=== PATIENT | male | born 1950 | race Caucasian/White ===

== ENCOUNTER 2025-06-27 05:40 | Inpatient (IN) | payer MEDICARE, OTHER, SELFPAY ==
[2025-06-27] VITALS (65 sets, daily range): BP systolic 92–162; BP diastolic 55–116; BMI 33.8; BMI 32.9
--- NOTE | 2025-06-27 02:25 | EDRN ---
error HR 69
[2025-06-27 02:39] LABS: Hematocrit 39.0 % (39.0-52.0); Hemoglobin 13.1 g/dL (13.0-18.0); Mean Corp Hgb Conc. 33.6 g/dL (33.0-37.0); Mean Corpuscular Volume 92.6 fL (80.0-94.0); Nucleated Red Blood Cells % 0 % (-); Platelet Count 161 10^3/uL (130-400); Red Cell Dist. Width 11.9 % (11.5-14.5)
[2025-06-27 03:02] LABS: ALT (SGPT) 18 U/L (0-50); AST (SGOT) 25 U/L (17-59); Albumin 4.2 g/dl (3.5-5.0); Alkaline Phosphatase 101 U/L (38-126); Blood Urea Nitrogen 30 mg/dl (9-20); Calcium 9.1 mg/dl (8.4-10.2); Carbon Dioxide 27 mmol/L (22-30); Chloride 104 mmol/L (98-107); Estimated Creatinine Clearance 59 ml/min; Glucose 120 mg/dl (70-99); Lipase 170 U/L (23-300); Potassium 4.4 mmol/L (3.5-5.1); Sodium 137 mmol/L (135-145); Total Protein 6.7 g/dl (6.3-8.2); eGFR > 60.00
--- NOTE | 2025-06-27 03:12 | ED.GENMED ---
History of Present Illness
General
Chief Complaint: Chest Pain
Source: patient
Exam Limitations: none
Time Seen by Provider: 06/27/25 02:08
Nursing documentation reviewed up to this point in time: agreed with
History of Present Illness
History of Present Illness:
The patient is a 75-year-old male presenting with a chief complaint of chest tightness, which began approximately four days ago. The tightness is described as more discomfort than pain and is located on the left upper chest, radiating to the back
and left lateral neck. The patient states, 'It got actually a little better when I was walking in here,' indicating some relief with activity. The tightness worsens when lying down and is most pronounced at night, interfering with sleep. There is no
history of similar symptoms.
The patient denies nausea or shortness of breath associated with the current episode. He has a history of using oral pantoprazole for a hiatal hernia/GERD, taking it once daily but has increased to twice daily over the past few days without
significant relief. The patient reports no previous history of coronary artery disease but mentions a known bundle branch abnormality, prohibiting the use of beta-blockers as advised by a die setter. He follows with a die setter at [place].
He admits that chest discomfort is only noted at nighttime with lying down. Not noticeable during the day when he is up and about.
No other associated symptoms.
No significant alcohol use, denies NSAID use.
Home medications include:
- Rosuvastatin
- Montelukast
- Amlodipine
- Semaglutide (Ozempic)
- Ezetimibe
- Valsartan
- Pantoprazole (Protonix)
- Hydrochlorothiazide
- Silodosin
Past History
Past History
ED Past Medical History: Asthma, GERD (Hiatal hernia), HTN, Hypercholesterolemia, NIDDM and Other (BPH)
ED Past Surgical History: Orthopedic
Social History
Tobacco: Non-smoker
Alcohol: Occasional
Drug: None
Personal:
Living: with family
Employment: Retired
Family History
Family History: CAD (Both father and brother with history of CAD/MIs in their 40s.)
Phy Exam
Physical Exam
Physical Exam:
GENERAL: 75-year-old gentleman appears his stated age, awake and alert, pleasant, appears in no acute distress.
EYE: anicteric
NECK: Supple, nontender, no meningismus, no significant adenopathy.
ENT: oral mucosa is moist. No rhinorrhea.
CARDIAC: Regular rate and rhythm. no murmur. No rub. No palpable chest wall tenderness.
LUNGS: Clear breath sounds bilaterally, no acute respiratory distress, no wheezes/rales/rhonchi
ABDOMEN: Rotund, soft, nondistended, without focal tenderness, no r/g, normoactive BS.
NEUROLOGICAL: Alert and oriented x3, no focal neuro deficits.
SKIN: Warm and dry, normal color, skin intact. No rash.
MUSCULOSKELETAL: No C/C/E. peripheral pulses are full and equal b/l. No palpable tenderness.
PSYCH: Normal and appropriate interaction.
Scores
Heart Score for Chest Pain Patients
STEMI patient?: No
History: Slightly or Non-Suspicious
ECG: Nonspecific Repolarization
Age: >/= 65 years
Risk Factors: >/= 3 Risk Factors or History of CAD
Troponin: >/= 3 x Normal Limit
Heart Score for Chest Pain Patients: 7
Heart Score Risk: 72.7 % MACE over next 6 weeks
Course
Orders/Labs/Results
Orders:
Orders
06/27/25 01:45
Electrocardiogram (*1) Urgent
Reason for Study: Chest Pain
EKG- Treatment ONCE
06/27/25 02:23
Complete Blood Count/With Diff Urgent
Comprehensive Metabolic Panel Urgent
Lipase Urgent
Troponin I Urgent
06/27/25 03:31
Aspirin Chewable [Low Strength Aspirin] 324 mg PO NOW STA
Heparin 4,000 units IV NOW STA
Nitroglycerin Sublingual [Nitrostat (Sublingual)] 0.4 mg SL NOW STA
Nursing to Place Non Medication Order As Directed
Physician Order: PTT 6 hours after initial start of Heparin infusion
Above order entered?: Yes
06/27/25 03:33
CR Chest - 2 Views Urgent
Comment:
Reason For Exam: acute CP
06/27/25 03:37
PTT Urgent
Comment: Obtain baseline before beginning heparin infusion if not already collected
06/27/25 03:39
Heparin [id number] Units/250 ml 25,000 units in 250 ml .ROUTE .STK-MED
06/27/25 03:45
Heparin [id number] Units/250 ml 25,000 units in 250 ml IV PER PROTOCOL
Weight to be used for heparin protocol in kilograms (kg):: 92
Protocol:: Cardiac Tx/Acute Coronary
PTT Goal Range to be used:: PTT 73 to 111 seconds
Order type:: Initial
INITIAL Infusion Dose (UNITS/KG/hr) & then follow protocol:: 12 units/kg/hr
Infusion Dose in UNITS/hr & then follow protocol (UNITS/hr):: 1,000
INFUSION RATE in mL/hr & then follow protocol (mL/hr):: 10
PTT less than or equal to 64 seconds:: Increase rate by 200 units/hr (+ 2 mL/hr)
PTT 64.1 to 72.9 seconds:: Increase rate by 100 units/hr (+ 1 mL/hr)
PTT 73 to 111 seconds:: Target Range. No change in rate.
PTT 111.1 to 130.9 seconds:: Decrease rate by 100 units/hr (- 1 mL/hr)
PTT 131 to 199.9 seconds:: HOLD for 1 hr. Then decrease rate by 200 units/hr (- 2 mL/hr)
PTT greater than or equal to 200 seconds:: HOLD for 2 hrs & Notify Provider. Then decrease by 200 units/hr (-
2 mL/hr)
Lab follow-up:: Each change, PTT q6h until 2 consecutive are therapeutic. Then PTT
daily.
06/27/25 03:54
Nitroglycerin Sublingual [Nitrostat (Sublingual)] 0.4 mg SL NOW STA
06/27/25 03:55
Nitroglycerin Sublingual [Nitrostat (Sublingual)] 0.4 mg SL NOW STA
06/27/25 04:02
EKG [Electrocardiogram (*1)] Urgent
Reason for Study: Chest Pain
EKG- Treatment ONCE
06/27/25 04:08
Nitroglycerin Sublingual [Nitrostat (Sublingual)] 0.4 mg SL NOW STA
06/27/25 05:12
Nitroglycerin Ointment [Nitro-Bid] 1 inch .ROUTE .STK-MED ONE
06/27/25 05:13
Nitroglycerin Ointment [Nitro-Bid] 1 inch TOPICAL NOW STA
06/27/25 05:15
Nitroglycerin Ointment [Nitro-Bid] 1 inch TOPICAL NOW STA
06/27/25 05:24
Admit/Transfer Patient As Directed
Co-Sign Provider:
Level of Care: Inpatient admission
Assign to:: IVU
Physician / Group: Pradip
Diagnosis: Chest Pain / ACS
Reason for Hospitalization: Chest Pain / ACS
Expected length of stay greater than two midnights?: Yes
ELOS- Estimated Length of Stay in days: 2
I certify the patient meets the requirements for IP care: Yes
PRN Pain Medication Management As Directed
May give lesser potent ordered pain med per pt: Yes
preference::
Protocol:: Medication orders for pain may be administered in a
manner that supports deferring to patient preference
when the pt is:
- Requesting an ordered lesser potent pain medication.
Least to most potent pain medications are defined
as: acetaminophen < NSAID < tramadol < opioids
(morphine, oxycodone, hydromorphone).
- Requesting a lesser dose of the same medication IF
ORDERED.
- Requesting a less intrusive route of administration
if both routes are prescribed by the provider (PO <
IV).
06/27/25 05:27
Code Status As Directed
Resuscitation Status: Full Code
06/27/25 09:45
PTT Urgent
Abnormal Lab Results
06/27/25 06/27/25
02:23 03:37
RBC 4.21 L 10^6/uL
(4.70-6.10)
MCH 31.1 H pg
(27.0-31.0)
APTT 35.5 H Sec
(23.4-35.0)
BUN 30 H mg/dl
(9-20)
Glucose 120 H mg/dl
(70-99)
Troponin I 0.440 H* ng/ml
06/27/25 02:23
06/27/25 02:23
Vital Signs
Initial and Last Documented VS:
Initial Vital Signs
Temp Pulse Resp BP Pulse Ox
97.7 F 70 18 159/71 99
06/27/25 01:53 06/27/25 01:53 06/27/25 01:53 06/27/25 01:53 06/27/25 01:53
Last Documented Vital Signs
Temp Pulse Resp BP Pulse Ox
97.7 F 72 16 115/67 97
06/27/25 01:53 06/27/25 06:30 06/27/25 05:00 06/27/25 06:30 06/27/25 06:30
MDM/Problems Addressed
Differential Diagnosis Includes:
The Differential Diagnosis includes, in no particular order and is not limited to:
- Gastroesophageal reflux disease
- Angina pectoris
- Myocardial infarction
- Musculoskeletal pain
- Pulmonary embolism
- Aortic dissection
- Cardiac arrhythmias
- Panic attacks
- Pericarditis
- Esophageal spasm
MDM/Problems Addressed:
Acute chest pain x 4 days, worse with lying supine.
This could certainly be acid reflux in nature however at this point no improvement with additional PPI.
He also has multiple risk factors for CAD.
EKG shows normal sinus rhythm, terminal T wave inversion inferiorly as well as mild ST depression high laterally. No old EKGs to compare.
Will check labs including troponin.
Will continue monitoring coordinator.
Consider imaging depending on results.
Chronic conditions affecting care:
Acute:
- Chest tightness
Chronic:
- Hiatal hernia
- Shoulder tendonitis
Chronic conditions affecting care: DM, HTN, Asthma and Other (Hyperlipidemia)
*Radiology
Radiology exam reviewed: preliminary read by ED provider (Chest x-ray is unremarkable. Clear lung toussaint. Normal heart size. Normal mediastinum.)
*Pulse Oximetry
SaO2: 100
Oxygen Mode of Delivery: Room air
Patient hypoxic: no
*EKG
Interpreted by ED Provider?: Yes
Comparison EKG: no comparison EKG present
Rate: normal
Rhythm: sinus
[place]: normal axis
Interval: normal interval
QRS Pattern: normal QRS
Ischemia: T-wave inversion (Terminal T wave inversion inferiorly. Mild ST depression high laterally. No old EKG to compare.)
*[employer] Store Marketing Representative Interpretation
Rate: normal
Interpretation: normal
Rhythm: sinus
*Critical Care Note
Total Time (30-74mins, 75-104mins- exclusive of procedures): 30
comment:
Critical care statement: A total of 30 minutes of critical care time was provided for this patient. This includes management of unstable vital signs, evaluation of the patient at bedside, reviewing the patient's pertinent medical records, discussion
with consultants, review of old EKGs and review of pertinent medical records. This time with separate from time utilized to perform the aforementioned documented procedures
Update Note
Update Note:
04:30
Labs remarkable for elevated troponin 0.440. Consistent with non-STEMI.
Patient admits to mild left upper chest ache.
Now improved, near resolved after sublingual nitroglycerin, 324 mg chewable aspirin.
Will initiate IV heparin bolus and drip.
Will give additional nitroglycerin and plan for Nitropaste pain-free, nitro drip if chest pain continues.
Repeat EKG shows ST downsloping in 1 and aVL. Terminal T wave inversion inferiorly is now resolved.
Will plan to admit to hospital service with consult to cardiology.
ED Attending Note
-
Portions of this chart may have been created with voice recognition software.� Occasional wrong word or��sound alike� substitutions may have occurred due to the inherent limitations of voice recognition software.
Discharge Plan
Departure
Patient Disposition: Admit
Date of Disposition: 06/27/25
Time of Disposition: 04:40
Admit to: IVU
Admit to doctor: Pradip
Presentation/result/management discussed w/ accepting MD/DO: Hospitalist
Condition: Serious
Discharge Problem:
Acute non-ST elevation myocardial infarction (NSTEMI)
Interventions
Interventions:
*Risk Screen - Suicide Last Done: 06/27/25 01:53
*General Assessment Last Done: 06/27/25 02:09
*Neglect/Abuse Screening Last Done: 06/27/25 01:53
*ED- Fall Risk Assessment Last Done: 06/27/25 02:09
*ED COVID-19 Vaccine History Last Done: 06/27/25 02:09
*ED Influenza Vaccine History Last Done: 06/27/25 02:09
ED- Cardiac Assessment Last Done: 06/27/25 02:09
[2025-06-27 03:15] LABS: Troponin I 0.440 ng/ml
[2025-06-27] MEDS: NITROSTAT (SUBLINGUAL) 0.4 MG SL ×4 (03:40→19:42)
[2025-06-27] MEDS: HEPARIN 4000 UNITS IV (03:41)
[2025-06-27] MEDS: LOW STRENGTH ASPIRIN 324 MG PO (03:41)
[2025-06-27] MEDS: HEPARIN 25000 UNITS/250 ML IV (03:44)
[2025-06-27 03:55] LABS: APTT 35.5 Sec (23.4-35.0)
[2025-06-27] MEDS: NITRO-BID 1 INCH TOPICAL (05:13)
--- NOTE | 2025-06-27 05:29 | HPS.HSE ---
Family Physician
-
Family Physician: Frantz Hernandez MD
Chief Complaint
-
Chest Pain
History of Present Illness
Patient is a 75y M with PMH significant for ASCVD, hypertension and DM-II who presents to ED complaining of chest pain. Patient states that his symptoms started about 4-5 days ago and have increased in frequency and severity in that time. He
reports heaviness or tightness primarily in the neck, jaw and L shoulder areas. His symptoms tend to be worse with lying supine and improve with standing / activity. He denies any associated SOB, N/V or diaphoresis. Patient denies any prior h/o
similar symptoms. He initially felt that his symptoms may be due to GERD. He increased his PPI to BID with no improvement.
Patient has no personal history of MS, but does have known carotid disease s/p bilateral CEA. he also has family history with CAD in both parents.
He is followed by Dr. Ruvalcaba and states that he has a 'leaky valve' and has been told that he cannot take beta-blockers.
Medical History
Past Medical History
Past Medical History: Reports Other
Additional Past Medical History:
ASCVD / Carotid Stenosis
Hypertension
DM-II
BPH
GERD
Asthma / Allergies
Past Surgical History: Reports Other
Additional Past Surgical History:
Bilateral Carotid Endarterectomies
Bilateral Rotator Cuff Surgeries
Bilateral Knee Arthroscopies
Left Ankle Surgery
Right Foot Surgery
Social History
Tobacco: Non-smoker
Alcohol: Occasional
Drug: None
Family History
Family History: Other (CAD in both parents.)
Allergies / Home Medications
Allergies reflects when Allergies were last updated in [employer]
Home Medications with original date entered in [employer]
Allergy/Medication List:
Allergies
Allergy/AdvReac Type Severity Reaction Status Date / Time
niacin Allergy Swelling Verified 06/27/25 02:13
strawberry Allergy Anaphylaxis Verified 06/27/25 02:13
Sulfa (Sulfonamide Allergy Unknown Verified 06/27/25 02:13
Antibiotics)
Home Medications
amlodipine 2.5 mg tablet 2.5 mg PO DAILY 06/27/25
aspirin 81 mg tablet 81 mg PO DAILY 06/27/25
azelastine 137 mcg (0.1 %) nasal spray 2 spray intranasal BID 06/27/25
desloratadine 5 mg tablet 5 mg PO DAILY 06/27/25
desloratadine 5 mg tablet (Clarinex) 5 mg PO DAILY 06/27/25
ezetimibe 10 mg tablet 10 mg PO DAILY 06/27/25
hydrochlorothiazide 12.5 mg tablet 12.5 mg PO DAILY 06/27/25
irbesartan 150 mg tablet 150 mg PO DAILY 06/27/25
montelukast 10 mg tablet 10 mg PO DAILY 06/27/25
pantoprazole 40 mg tablet,delayed release 40 mg PO DAILY 06/27/25
rosuvastatin 10 mg tablet 10 mg PO DAILY 06/27/25
semaglutide 2 mg/dose (8 mg/3 mL) subcutaneous pen injector (Ozempic) 2 mg SC QWEEK 06/27/25
silodosin 8 mg capsule 8 mg PO DAILY 06/27/25
Review of Systems
-
History Source: Patient
A 12 point ROS was completed and negative except as noted: Yes
Constitutional: Denies Fever or Chills
EENT: Reports Other (Jaw pain.); Denies Sore Throat
Respiratory: Denies Cough or Trouble Breathing
Cardiac: Reports Chest Pain; Denies Diaphoresis, Palpitations or Syncope
Abdomen/GI: Denies Abdominal Pain, Nausea, Vomiting or Diarrhea
: Denies Dysuria, Frequency or Flank Pain
Musculoskeletal: Reports Joint Pain (Neck / L shoulder)
Neurological: Denies Dizzy or Headache
Psych: Denies Depression or Anxiety
Physical Exam
Vital Signs
Vital Signs
Temp Pulse Resp BP Pulse Ox
97.7 F 78 16 133/79 99
06/27/25 01:53 06/27/25 05:15 06/27/25 05:00 06/27/25 05:15 06/27/25 05:15
Physical Exam
General: Other (75y M in no acute distress.)
HEENT: Moist mucous membranes and PERRLA
Respiratory: Clear; No Wheezes, Rales or Rhonchi
Cardiac: S1/S2 and Regular Rhythm; No Murmur
GI: Soft, Non Tender, Non Distended and Normal Bowel Sounds
Musculoskeletal: No Clubbing, No Cyanosis and No Edema
Neuro: AO x 3
Laboratory Results
-
06/27/25 02:23
06/27/25 02:23
Laboratory Results
APTT 35.5 Sec (23.4-35.0) H 06/27/25 03:37
Total Bilirubin 0.6 mg/dl (0.2-1.3) 06/27/25 02:23
AST 25 U/L (17-59) 06/27/25 02:23
ALT 18 U/L (0-50) 06/27/25 02:23
Alkaline Phosphatase 101 U/L (38-126) 06/27/25 02:23
Troponin I 0.440 ng/ml H* 06/27/25 02:23
Lipase 170 U/L (23-300) 06/27/25 02:23
Impression/Plan
-
A/P: Patient is a 75y M with PMH significant for ASCVD (carotids), HTN and DM-II who presents to ED complaining of chest pain.
NSTEMI / ACS
ASCVD
- Admit to IVU for further evaluation and treatment.
- EKG shows non-specific ST changes laterally which appear unchanged from prior tracing. Biphasic T waves in III and aVF which appear new.
- Initial troponin is 0.44. Follow to peak.
- Patient with some residual pain. NTP just placed in the ED - change to IV NTG if pain persists.
- IV heparin protocol.
- Continue ASA. Increase statin dose.
- Cardiology consulted for additional recommendations and likely ischemic evaluation.
- Follow for any new / worsening symptoms.
Benign Hypertension
- Continue amlodipine and irbesartan with holding parameters.
- Hold HCTZ acutely.
- Adjust med regimen as able. ? addition aof beta-theodore (clarify valvular issue / ? records from Dr. Ruvalcaba).
DM-II
- Stable. On Ozempic as an outpatient.
- Follow glucose and cover with SSI as needed.
- Update A1C.
GERD
- Continue PPI daily.
BPH
- Continue silodosin.
Allergies / Asthma
- Stable. Continue Singulair.
DVT Prophylaxis: On IV heparin
Code Status: Full
[2025-06-27 08:17] LABS: Glucose - Point of Care 119 mg/dl (70-99)
[2025-06-27] MEDS: LOW STRENGTH ASPIRIN 81 MG PO (09:39)
[2025-06-27] MEDS: PROTONIX 40 MG PO (09:39)
[2025-06-27] MEDS: NORVASC PO (09:40)
--- NOTE | 2025-06-27 09:44 | CON.CAR ---
Addendum entered and electronically signed by Amparo Cunningham MD 06/27/25 11:17:
I saw and evaluated the patient, and I provided the substantive portion of the medical decision making.
I reviewed and agree with the note by Connie IRENE and it accurately reflects our care.
I personally performed the medical decision making of the this encounter and my assessment and plan is below:
75-year-old gentleman with past medical history of PAD status post bilateral carotid endarterectomy, type 2 diabetes, hypertension, and hyperlipidemia who presented for evaluation of chest pain. Patient states he has had intermittent chest pain for
the past 4 to 5 days. At first it felt like a burning and reminiscent of his GERD. It was worse when he lie flat. This did not improve with treatment of GERD. Additionally, yesterday became more persistent lasting for 4 to 5 hours without
resolution. At this time it began to migrate up to the left upper chest and into his jaw. Currently he is feeling better. On arrival, initial troponin was 0.4 and now has increased to 1.5. The pain is not pleuritic. He has no history of recent
viral illness. He reports a remote cath that was 'normal'.
On exam he has a regular rate and rhythm with a normal S1-S2 no murmur rubs or rubs were appreciated lungs were clear to auscultation bilaterally abdomen was soft nontender nondistended without hepatosplenomegaly. Labs were per for troponins as
above. BUN 30 creatinine 1.1.
EKG shows normal sinus rhythm with LVH and strain. Primary AV conduction delay. No significant change from arrival.
Assessment:
NSTEMI: Concerning for acute plaque rupture given persistent pain at rest yesterday radiating to the jaw. This is a high risk situation threat to life. However, initial presentation is not typical. Currently on aspirin and heparin. Will
continue. I discussed with him the risks and benefits of cardiac catheterization and he is agreeable. I discussed his case with Dr. Ye.
- Continue statin, update lipid panel
-Add beta-theodore if room.
-Echocardiogram
Hypertension: Chronic stable
PAD: Chronic, recommend high-dose statin. LDL goal of less than 55.
Hyperlipidemia: Chronic statin, will assess need for additional agents.
Diabetes type 2, chronically on Ozempic.
Plan discussed with Dr. Rico. Will follow.
Original Note:
Consultation
Consultation Request
Date/Time Consultation Requested: 06/27/2025 09:20
Date/Time Consultation Performed: 06/27/2025 09:40
Requesting Provider: Dr. Rico
Performing Provider: TETO Landis for Dr. Cunningham
Reason for Consultation: Chest pain, abnormal troponin
Medical History
-
Chief Complaint: Chest pain
History of Present Illness:
Fidencio Sierra is a 75 year old male (known to Dr. Ruvalcaba, his primary floor covering installer) with PAD (s/p B/L CEA), HTN, HLD, & T2DM who presents with chest pain. His chest pain which he describes as a 'discomfort' started about 4 to 5 days ago. It gets
worse with laying flat and improves with sitting up. It does not get worse with exertion. He describes the sensation as burning heaviness. He has been increasing his PPI thinking it was related to GERD. He does not have associated nausea and
diaphoresis. He is currently sitting upright and is chest pain free.
Past Medical History
Past Medical History: GERD, HTN, Hypercholesterolemia, NIDDM and Other (PAD s/p B/L CEA)
Past Surgical History: Orthopedic and Other (B/L CEA)
Social History
Tobacco: Non-Smoker
Alcohol: Occasional
Drug: None
Family History
Family History: Reviewed & Not Pertinent
Allergies / Home Medications
Allergy/AdvReac Type Severity Reaction Status Date / Time
niacin Allergy Swelling Verified 06/27/25 02:13
strawberry Allergy Anaphylaxis Verified 06/27/25 02:13
Sulfa (Sulfonamide Allergy Unknown Verified 06/27/25 02:13
Antibiotics)
�Medication �Instructions �Recorded �Confirmed �Type
amlodipine 2.5 mg tablet 2.5 mg PO DAILY Blood Pressure 06/27/25 06/27/25 History
aspirin 81 mg tablet 81 mg PO HS Heart Disease/Condition 06/27/25 06/27/25 History
azelastine 137 mcg (0.1 %) nasal 2 spray intranasal BID Allergies 06/27/25 06/27/25 History
spray
desloratadine 5 mg tablet 5 mg PO QPM Allergies 06/27/25 06/27/25 History
ezetimibe 10 mg tablet 10 mg PO DAILY 06/27/25 06/27/25 History
hydrochlorothiazide 12.5 mg tablet 25 mg PO DAILY Fluid 06/27/25 06/27/25 History
Retention/Swelling
irbesartan 150 mg tablet 150 mg PO QPM 06/27/25 06/27/25 History
montelukast 10 mg tablet 10 mg PO HS Allergies 06/27/25 06/27/25 History
pantoprazole 40 mg tablet,delayed 40 mg PO DAILY Gastrointestinal 06/27/25 06/27/25 History
release Issue
rosuvastatin 10 mg tablet 10 mg PO QPM High Cholesterol 06/27/25 06/27/25 History
semaglutide 2 mg/dose (8 mg/3 mL) 2 mg SC SA Weight Gain 06/27/25 06/27/25 History
subcutaneous pen injector (Ozempic)
silodosin 8 mg capsule 8 mg PO QPM Urinary Issue 06/27/25 06/27/25 History
Review of Systems
-
History Source: Patient
All other systems: Negative unless noted
Constitutional: No Symptoms
EENT: No Symptoms
Respiratory: No Symptoms
Cardiac: No Symptoms
Abdomen/GI: No Symptoms
: No Symptoms
Musculoskeletal: No Symptoms
Skin: No Symptoms
Neurological: No Symptoms
Endocrine: No Symptoms
Hematologic/Lymphatic: No Symptoms
Physical Exam
Vital Signs
Temp Pulse Resp BP Pulse Ox
97.7 F 75 15 105/68 95
06/27/25 08:13 06/27/25 08:45 06/27/25 08:13 06/27/25 08:13 06/27/25 07:30
Lab Results
06/27/25 02:23
06/27/25 02:23
Troponin I 0.440 ng/ml H* 06/27/25 02:23
Physical Exam
General: Well Developed, Well Nourished, No Apparent Distress and Comfortable
HEENT: Normocephalic, Anicteric and Moist Mucous Membranes
Respiratory: Clear and Non Labored Respirations
Cardiac: S1/S2 and Regular Rhythm; Negative Peripheral Edema
Breast: Deferred by me
GI: Soft, Non Tender, Non Distended and Normal Bowel Sounds
Rectal: Deferred by Provider
Genito-urinary: No Costovertebral Tender
Musculoskeletal: No Clubbing, No Cyanosis and No Edema
Skin: Warm and Dry
Neuro: AO x 3
Hematologic/Lymphatic: No Lymphadenopathy
Psych: Calm
Impression / Plan
-
I/P: 75M with PAD (s/p B/L CEA), HTN, HLD, & T2DM who presents with chest pain
Primary floor covering installer: Dr. Ruvalcaba
NSTEMI
- Trend troponin to peak, currently 1.530, was 0.440
- Check CRP and ESR with chest pain laying flat
- Continue ASA & heparin gtt
- Echocardiogram this morning
HTN
- Stable on currently medical therapy
PAD, s/p B/L CEA
HLD, on rosuvastatin & ezetimibe, fasting lipid panel in am
Type 2 diabetes, with hyperglycemia, on Ozempic, Hgba1c pending
GERD
Data Reviewed
-
EKG: Report Reviewed by me
Medical Tests (Nuc Med, Echo etc): Report Reviewed by me
Labs: Labs Reviewed by me
Old Records: Reviewed
[2025-06-27] MEDS: CRESTOR PO (09:45)
[2025-06-27 10:02] LABS: APTT 67.2 Sec (23.4-35.0)
[2025-06-27 10:29] LABS: Troponin I 1.530 ng/ml
--- NOTE | 2025-06-27 11:58 | CM ---
Chart reviewed. Patient is independent of ADLS, lives with his in a 1 story condo, 3rd floor, elevator access, 0 DME. Patient going for a LHC today. Plan is for the patient to return home. CM to follow
--- NOTE | 2025-06-27 12:42 | W.PN.UPDATE ---
Update Note
Progress Note Update
Seen and examined independent of overnight physician. Patient states chest pain was crushing yesterday. It did improve with nitroglycerin x 3 doses yesterday.
General: No acute distress
HEENT: Moist mucous membranes and PERRLA
Respiratory: Clear; No Wheezes, Rales or Rhonchi
Cardiac: S1/S2 and Regular Rhythm; No Murmur
GI: Soft, Non Tender, Non Distended and Normal Bowel Sounds
Musculoskeletal: No Clubbing, No Cyanosis and No Edema
Neuro: AO x 3
Patient is a 75y M with PMH significant for ASCVD (carotids), HTN and DM-II who presents to ED complaining of chest pain.
NSTEMI / ACS
ASCVD
-Troponin peaked to 1.5.
- Patient with some residual pain. NTP just placed in the ED - change to IV NTG if pain persists.
- IV heparin protocol.
- Continue ASA. Increase statin dose.
- Cardiology consulted -plan for tentative cardiac catheterization possibly later today
- Follow for any new / worsening symptoms. Update ECHO
Benign Hypertension
- Continue amlodipine and irbesartan with holding parameters.
- Hold HCTZ acutely.
- Adjust med regimen as able.
DM-II
- Stable. On Ozempic as an outpatient.
- Follow glucose and cover with SSI as needed.
- Update A1C.
GERD
- Continue PPI daily.
BPH
- Continue silodosin.
Allergies / Asthma
- Stable. Continue Singulair.
DVT Prophylaxis: On IV heparin
Code Status: Full
Discussed with cardiology
Discussed with spouse at bedside
[2025-06-27 12:52] LABS: Glucose - Point of Care 87 mg/dl (70-99)
[2025-06-27 12:54] LABS: Glycohemoglobin (HgbA1c) 5.7 % (4.0-5.9)
--- NOTE | 2025-06-27 12:56 | ITS.CL.CATH ---
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
Cardiac Catheterization
Procedure Report:
CARDIAC CATHETERIZATION REPORT
Date of Procedure: 06/27/2025
Referring: Mariluz Cunningham M.D.
INDICATION: Non-ST elevation myocardial infarction.
PROCEDURE:
1. Left heart catheterization.
2. Coronary angiography.
A total of 35 minutes of procedural/moderate sedation was utilized. An independent medical microbiologist was present to assist with and help manage the patient's level of consciousness and physiologic status.
ACCESS:
1. 6 [place]an right radial artery using a modified Seldinger technique.
CATHETERS:
1. 5 [place]an JR4.
2. 5 Singaporean JL 3.5.
HEMODYNAMIC DATA
Weight (kg): 89.4
AO (s/d/x, mmHg): 122/60/83
LV (s/x mmHg): 136/15
RSCA (s/d/x, mmHg): 100/65/82
AO (s/d/x, mmHg): 150/67/102
AV gradient (x, mmHg): 18.6
LEFT VENTRICULOGRAPHY: Not performed.
CORONARY ANGIOGRAPHY
Dominance: Right.
Left Main: Normal size, bifurcating vessel. There is modest tapering of the distal left main into the LAD.
LAD: Normal size vessel giving rise to several small diagonals. The entire proximal and mid artery is densely calcified. There is a long, 40% lesion in the ostial/proximal vessel. There is a 70% lesion in the mid vessel after the second
diagonal. There are tandem 90%, 80% and 70% lesions in the distal LAD.
Ramus: Congenitally absent.
Circumflex: Normal size, nondominant vessel giving rise to 2 obtuse marginals. There is a 40% lesion in the ostium of the circumflex. There are luminal irregularities in the first obtuse marginal. The second obtuse marginal is a 2 mm vessel
that rapidly tapers and is occluded approximately 20 mm after its origin.
RCA: Normal size, dominant vessel. There is a hazy, 90+% lesion in the mid RCA. There appears to be a modest stenosis in the origin of the RPDA, though the flow pattern does not permit full interrogation. The right posterolateral branch
appears chronically totally occluded. The distal RPL branch is supplied by collaterals from the circumflex.
INTERVENTION(S)
None.
Closure Device: Vascular band.
Radiation (mGy): 402.50
DAP (cm2.Gy): 37.4542
Fluoroscopy time (minutes): 5.0
CONCLUSIONS
1. Right dominant circulation with a 90+%, ulcerated lesion in the mid RCA, a modest stenosis in the origin of the RPDA with chronic total occlusion of the RPL branch, modest tapering of the distal left main coronary artery, dense calcification of
the entire proximal and mid LAD with a 40% lesion in the ostial/proximal LAD, a 70% lesion in the mid vessel after the second diagonal followed by tandem 90%, 80% and 70% lesions in the distal LAD, a 40% lesion in the ostium of the circumflex
followed by luminal irregularities in the remainder of the circumflex territory. The circumflex provides [id number] collaterals to the occluded distal RPL branch.
2. Mildly elevated filling pressures (LVEDP = 15 mmHg at 89.4 kg).
3. Severe right subclavian artery stenosis (peak to peak gradient 50 mmHg).
RECOMMENDATIONS:
1. Expectant management after cardiac catheterization via right radial approach.
2. Limited weight bearing on the right wrist for one week.
3. Consultation with CT surgery regarding optimal revascularization strategy.
4. Maintain anticoagulation and antiplatelet therapy.
5. OMT/GDMT as hemodynamics will tolerate.
6. Aggressive secondary prevention with high-dose, high potency statin. Goal LDL <55.
Copy to: Mariluz Cunningham M.D., Frantz Hernandez M.D., Abimael Rico M.D.
Parviz Ye, DO, FACC, FACP
--- NOTE | 2025-06-27 15:28 | CONSULT.CT ---
Addendum entered and electronically signed by Ramiro Kulkarni MD 06/28/25 10:46:
CARDIAC SURGERY ATTENDING:
It was my pleasure to evaluate Mr. Fidencio Sierra for consideration for surgical coronary revascularization. I agree with the consultation note as noted below. I have reviewed his medical history and current hospital course as well as available
imaging. I agree with the physician law office assistant note as dictated below.
Unfortunately, given the pattern of this patient's coronary disease, particularly in the LAD distribution, I do not believe cardiac bypass surgery will offer him the ideal result given the [place] stenoses affecting his LAD. His right
coronary lesion although significantly calcified appears fairly focal. I discussed this case with my interventional cardiology colleague, Dr. Parviz Ye, who believes PCI is possible. I also reviewed this case with my to surgical colleagues who
concur that given the patient's pattern of coronary disease, CABG is not ideal.
I discussed this with the patient who is agreeable. I will offer surgical backup should this be necessary during his catheterization procedure.
Thank you for the opportunity participate in the care of this patient.
Ramiro Kulkarni MD
[phone]
Original Note:
Consultation
-
Date/Time Consultation Requested: 06/27/25
Date/Time Consultation Performed: 06/27/25
Requesting Provider: Parviz Ye
Performing Provider: Peyton IRENE for Ramiro Kulkarni MD
Reason for Consultation: CABG evaluation
Patient History
Physicians
Family Physician: Frantz Hernandez
Outpatient Inspector Bullet Slugs: Sunday Ruvalcaba MD
Inpatient Inspector Bullet Slugs: [facility] Cardiology
History of Present Illness
75 year old male with PMH significant for PAD s/p B/L CEA, HTN, T2DM, who presents to [facility] ED on 06/27/25 complaining of intermittent chest pressure ('heaviness') x 4-5 days.time. Today, pressure radiated to neck, jaw, and L shoulder areas.
Troponin 1.53 consistent with NSTEMI. Cardiac catheterization reported 3VCAD and TTE reported normal EF 55-60% with mild aortic, mitral tricuspid and pulmonic insufficiency. Aortic root 4.2cm. Cardiac surgery is consulted for evaluation of CABG vs
PCI.
Past Medical History
Past Medical History: BPH, GERD, HTN, Hypercholesterolemia, NIDDM (x 6 years) and Other (BPH, PAD)
Past Surgical History
Past Surgical History: Other (B/L carotid endarterectomies (6 years ago), B/L knee arthroscopies, foot and ankle surgeries, B/L RTC repair)
Family History
Mother: at Age
Father: at Age
Family Medical History: CAD (F -CABG @ age 45; M-CABG in early 60s)
Social History
Alcohol: Occasional
Drug: None
Tobacco: Former Smoker (cigar/pipe-quit 20 years ago)
Personal:
Living: With Spouse
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
Allergies
Allergy/AdvReac Type Severity Reaction Status Date / Time
niacin Allergy Swelling Verified 06/27/25 02:13
strawberry Allergy Anaphylaxis Verified 06/27/25 02:13
Sulfa (Sulfonamide Allergy Unknown Verified 06/27/25 02:13
Antibiotics)
Home Medications
�Medication �Instructions �Recorded �Confirmed �Type
amlodipine 2.5 mg tablet 2.5 mg PO DAILY Blood Pressure 06/27/25 06/27/25 History
aspirin 81 mg tablet 81 mg PO HS Heart Disease/Condition 06/27/25 06/27/25 History
azelastine 137 mcg (0.1 %) nasal 2 spray intranasal BID Allergies 06/27/25 06/27/25 History
spray
desloratadine 5 mg tablet 5 mg PO QPM Allergies 06/27/25 06/27/25 History
ezetimibe 10 mg tablet 10 mg PO DAILY 06/27/25 06/27/25 History
hydrochlorothiazide 12.5 mg tablet 25 mg PO DAILY Fluid 06/27/25 06/27/25 History
Retention/Swelling
irbesartan 150 mg tablet 150 mg PO QPM 06/27/25 06/27/25 History
montelukast 10 mg tablet 10 mg PO HS Allergies 06/27/25 06/27/25 History
pantoprazole 40 mg tablet,delayed 40 mg PO DAILY Gastrointestinal 06/27/25 06/27/25 History
release Issue
rosuvastatin 10 mg tablet 10 mg PO QPM High Cholesterol 06/27/25 06/27/25 History
semaglutide 2 mg/dose (8 mg/3 mL) 2 mg SC SA Weight Gain 06/27/25 06/27/25 History
subcutaneous pen injector (Ozempic)
silodosin 8 mg capsule 8 mg PO QPM Urinary Issue 06/27/25 06/27/25 History
Review of Systems
-
History Source: Patient
General: Reports No Symptoms
HEENT: Reports No Symptoms
Respiratory: Reports No Symptoms
Cardiac: Reports No Symptoms
Abdomen/GI: Reports No Symptoms
: Reports No Symptoms
Musculoskeletal: Reports No Symptoms
Skin: Reports No Symptoms
Neurological: Reports No Symptoms
Vascular: Reports No Symptoms
Physical Exam
Vital Signs
Temp 97.7 F 06/27/25 08:13
Temp route: Oral 06/27/25 08:13
Pulse 65 06/27/25 14:00
Rhythm: Normal sinus rhythm 06/27/25 08:00
With- First Degree Heart Block 06/27/25 08:00
Resp Rate 15 06/27/25 08:13
Blood pressure 115/74 06/27/25 13:30
Blood pressure extremity used: Left upper arm 06/27/25 08:13
Position: Sitting 06/27/25 08:13
MAP (cuff-Charlie Monitor) 83 06/27/25 13:30
SaO2 99 06/27/25 13:30
Oxygen Mode of Delivery Room air 06/27/25 08:13
Acceptable pain level during hospitalization? 0 06/27/25 01:53
Can the patient verbally communicate their pain? Yes 06/27/25 08:14
Pain scale ratin 06/27/25 04:13
Actual Weight 89.7 kg 06/27/25 08:11
Body Mass Index (BMI) 32.9 06/27/25 08:11
Oxygen Saturation with Activity 98 06/27/25 08:13
Labs
06/27/25 02:23
06/27/25 02:23
APTT Cancelled 06/27/25 16:30
Hemoglobin A1c Cancelled 06/27/25 09:50
Troponin I 1.530 ng/ml H* D 06/27/25 09:38
Diagnostic Studies
Left Heart Cath (R radial) Dr Ye 06/27/25:
Left Main: modest tapering of the distal left main into the LAD.
LAD: Entire proximal and mid artery is densely calcified. Long, 40% lesion in the ostial/proximal vessel. 70% lesion in the mid vessel after the second diagonal. Tandem 90%, 80% and 70% lesions in the distal LAD.
Circumflex: 40% lesion in the ostium of the circumflex. There are luminal irregularities in the first obtuse marginal. The second obtuse marginal is a 2 mm vessel that rapidly tapers and is occluded approximately 20 mm after its origin.
RCA: Normal size, dominant vessel. There is a hazy, 90+% lesion in the mid RCA. There appears to be a modest stenosis in the origin of the RPDA, though the flow pattern does not permit full interrogation. The right posterolateral branch appears
chronically totally occluded. The distal RPL branch is supplied by collaterals from the circumflex.
TTE 06/27/25:
LVEF 55-60%. No aortic stenosis, mild AI/MR/TR/PI. Aortic root 4.2cm.
Exam
General: Well Developed, Well Nourished and No Apparent Distress
HEENT: Normocephalic, Anicteric, Moist Mucous Membranes and PERRLA
Neck: Carotid Bruit (B/L L>R), Trachea Midline and Other (B/L subclavian bruit)
Respiratory: Clear
Cardiac: S1/S2 and Regular Rhythm (+S4)
GI: Soft, Non Tender, Non Distended and Normal Bowel Sounds
Rectal: Deferred by Provider
Skin: Warm and Dry
Neuro: AO x 3, No Motor Deficits and Nonfocal/Grossly Intact
Extremities: Other (R radial TR band intact w/o bleeding)
Lymph: No Lymphadenopathy
Psych: Calm
Assessment / Plan
-
75 year old male admitted with NSTEMI and found to have triple vessel coronary disease with preserved EF and Aortic root measuring 4.2cm
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
- pre-op diagnostics ordered
- Need STS risk score calculated when testing completed
Data Reviewed
-
EKG: Report Reviewed by me and Discussed with Physician
Kindergartner: Report Reviewed by me and Discussed with Physician
Echo: Report Reviewed by me and Discussed with Physician
Radiology: Report Reviewed by me and Discussed with Physician
Labs: Labs Reviewed by me and Discussed with Physician
[2025-06-27] MEDS: AVAPRO 150 MG PO (15:49)
[2025-06-27] MEDS: CRESTOR 40 MG PO (15:49)
[2025-06-27 17:12] LABS: Glucose - Point of Care 116 mg/dl (70-99)
[2025-06-27 17:14] LABS: INR 1.09; PT 14.4 Sec (11.4-14.6)
[2025-06-27 17:21] LABS: C-Reactive Protein < 5.00 mg/L (0.0-10.00)
[2025-06-27 17:30] LABS: Troponin I 2.470 ng/ml
--- NOTE | 2025-06-27 18:53 | PTCARENOTE ---
~1860-7861: Received patient from ED via stretcher transport. Patient AOx4, NSR 1st degree AVB 70s-80s, SBP 100s, RA satting 98%. Patient does not c/o pain/ CP at this time. Glasses and hearing aids on patient at this time. Heparin gtt infusing @
10. PTT and trop drawn and sent to lab, heparin gtt titrated per protocol. Cardiology made aware of critical troponin result. Nitrobid paste on right upper chest which remains from ED. +2/+1 pulses, no edema. at bedside. Pt NPO at this time
pending plan of care. Pt independent in room. Admission charting completed and patient oriented to room and call colin system. Medication times adjusted by pharmacy to reflect when patient normally takes some daily medicaitons. All needs met at this
time, call colin within reach.
~7504-3639: Report given to CCL and patient taken to CCL via bed in stable condition.
~2630-0598: Patient returned from CCL. R radial puncture CDI with TR band placed. No sign of bleeding or hematoma noted. VSS at this time. Pt educated on RUE restrictions. Post-op fluids infusing. at bedside. All needs met at this time, call
colin within reach.
~8858-8636: Patient taken down for ECHO in stable condition. Air removed from patient band. Dr. Ye in to speak with patient and about findings of cath.
~0460-5929: Bloodwork drawn and sent to lab. Patient independent in room. TR band removed and dressing CDI with no hematoma or bleeding noted at this time. Heparin gtt restarted at 1630 per order.
~2121-2057: Patient taken in stable condition to CT scan. Dr. Kulkarni came by to speak with patient, but patient was at CT, he stated he will be back tomorrow to speak with patient about plan. All needs met at this time, call colin within reach.
Handoff report given to nightshift RN.
[2025-06-27] MEDS: NITROGLYCERIN PREMIX 250 IV (19:52)
[2025-06-27] MEDS: SINGULAIR 10 MG PO (19:54)
--- NOTE | 2025-06-27 21:11 | PTCARENOTE ---
assumed care of patient at the change of shift. AAOx3. during rounds, patient denied any chest pain. states 'i usually only have it when im laying down.' Rn went back in to see patient, sitting up in bed, and patient complained of 5/10 pain-middle
chest, radiating to the left shoulder and left neck. pressure like pain. denies sob. EKG completed. 2L NC placed on patient 100%. updated Tsilina CV PA. x1 sublingual nitro given at 1942. patients pain improved- 2/10. nitro gtt started per order.
increased to 30 mcg/min per protocol to get patients chest pain to 0/10. blood pressure stable throughout. R radial site intact. SR with a 1st degree AVB on tele- 70s-80s. educated patient to inform Rn with any new changes overnight. urinating
yellow urine in the bedside urinal. call colin within reach.
[2025-06-27 22:38] LABS: Glucose - Point of Care 109 mg/dl (70-99)
[2025-06-27 22:56] LABS: APTT 53.5 Sec (23.4-35.0)
[2025-06-27 23:10] LABS: Troponin I 2.640 ng/ml
[2025-06-27] MEDS: TYLENOL 650 MG PO (23:22)
[2025-06-28] VITALS (31 sets, daily range): BP systolic 66–160; BP diastolic 32–86; BMI 32.6
--- NOTE | 2025-06-28 02:15 | W.PN.UPDATE ---
Update Note
Progress Note Update
late note entry:
- came in urgently at 8 pm 06/27 to eval pt for CP. He c/o 5/10 chest pressure radiating to the jaw, which got down to 2/10 after getting 1 sl Nitro. ECG was without significant acute changes. Pt was conversant and in no distress. He is already on
iv Heparin. Started iv Nitro and uptitrated until free of CP. No hypotension with iv Nitro. SBP was 110s-140s, in nsr 71 with known long 1st degree AVB, pOx 99 on 2L
-discussed with Dr. Cunningham - will trend trops, continue to monitor
[2025-06-28] MEDS: NSS 250 IV (02:22)
--- NOTE | 2025-06-28 02:24 | PTCARENOTE ---
patients blood pressure noted to be low- 81/52. patient sleeping in bed. patient states that he was sleeping on side. recheck- . patient denies any lightheadedness/dizziness. denies any chest pain. notified Beto CV PA. decreased nitro gtt
per protocol to 5 mcg/min. IVF bolus ordered, see oct.
current BP 95/58. HR 89. no cp.
educated patient to inform RN with any changes.
[2025-06-28] MEDS: HEPARIN 25000 UNITS/250 ML IV (05:38)
--- NOTE | 2025-06-28 05:42 | PTCARENOTE ---
patient states getting some rest overnight. currently patient is chest pain free. nitro at 5 mcg/min. heparin infusing per order. ambulated to the bathroom- no issues. HR 80s. bp 119/75.
AM EKG sent to Beto DUONG via TT.
[2025-06-28 05:52] LABS: APTT 77.7 Sec (23.4-35.0)
[2025-06-28 06:05] LABS: ALT (SGPT) 17 U/L (0-50); AST (SGOT) 31 U/L (17-59); Albumin 3.6 g/dl (3.5-5.0); Alkaline Phosphatase 78 U/L (38-126); Blood Urea Nitrogen 27 mg/dl (9-20); Calcium 8.7 mg/dl (8.4-10.2); Carbon Dioxide 28 mmol/L (22-30); Chloride 105 mmol/L (98-107); Estimated Creatinine Clearance 63 ml/min; Glucose 103 mg/dl (70-99); HDL Cholesterol 42 mg/dl; LDL Cholesterol, Calculated 41 mg/dl; Potassium 4.2 mmol/L (3.5-5.1); Sodium 133 mmol/L (135-145); Total Protein 5.9 g/dl (6.3-8.2); Very Low Density Lipoprotein 19 mg/dl (0-30); eGFR > 60.00
[2025-06-28 06:06] LABS: Troponin I 2.000 ng/ml
[2025-06-28 08:03] LABS: Glucose - Point of Care 107 mg/dl (70-99)
[2025-06-28] MEDS: PROTONIX 40 MG PO (09:43)
[2025-06-28] MEDS: TYLENOL 650 MG PO ×2 (09:44→19:42)
[2025-06-28] MEDS: LOW STRENGTH ASPIRIN 81 MG PO (09:44)
[2025-06-28] MEDS: AVAPRO 150 MG PO (09:44)
[2025-06-28] MEDS: NORVASC 2.5 MG PO (09:44)
[2025-06-28 09:58] LABS: Magnesium 2.2 mg/dl (1.6-2.3)
--- NOTE | 2025-06-28 11:02 | CM ---
Chart reviewed. Patient is independent of ADLS, lives with his in a condo, 3rd floor, elevator access, everything on 1 floor, 0 DME. Plan is for the patient to return home. CM to follow
--- NOTE | 2025-06-28 11:38 | W.PN.CD ---
Today's Communication / Plan
-
revascularization per CT Surgery and interventional cardiology
Continue IV heparin/ASA/Statin
Impression / Plan
-
I/P: 75M with PAD (s/p B/L CEA), HTN, HLD, & T2DM who presents with chest pain
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
NSTEMI, peak trop 2.6, LVEF 55-60% with normal wall motion
3V CAD
HTN
PAD, s/p B/L CEA
HLD, on rosuvastatin & ezetimibe, fasting lipid panel in am
Type 2 diabetes, with hyperglycemia, on Ozempic
GERD
Subjective:
Feels OK. Has discussed revascularization with CT Surgery and interventional cardiology
Physical Exam
Vital Signs/Labs
Vital Signs
Temp Pulse Resp BP Pulse Ox
97.9 F 78 16 121/80 99
06/28/25 11:14 06/28/25 08:00 06/28/25 11:14 06/28/25 07:57 06/28/25 11:14
06/27/25 06/28/25 06/29/25
06:59 06:59 06:59
Actual Weight 92 kg 88.8 kg
06/27/25 02:23
06/28/25 05:25
PT 14.4 Sec (11.4-14.6) 06/27/25 16:52
INR 1.09 06/27/25 16:52
APTT 77.7 Sec (23.4-35.0) H 06/28/25 05:25
Magnesium 2.2 mg/dl (1.6-2.3) 06/28/25 05:25
Triglycerides 96 mg/dl (10-149) 06/28/25 05:25
LDL Cholesterol, Calc 41 mg/dl 06/28/25 05:25
VLDL Cholesterol, Calc 19 mg/dl (0-30) 06/28/25 05:25
HDL Cholesterol 42 mg/dl 06/28/25 05:25
LAB Results
06/27/25 06/27/25 06/27/25
02:23 09:38 16:52
Troponin I 0.440 H* 1.530 H* D 2.470 H* D
06/27/25 06/27/25 06/28/25
20:09 22:37 05:25
Troponin I Cancelled 2.640 H* 2.000 H*
Physical Exam
Constitutional: No acute distress
EENT: Anicteric
Cardiovascular: Rhythm & rate is regular and Pedal edema is absent
Respiratory: Respiratory effort normal and Lungs clear to auscul.
GI: Soft and Distention absent
Neuro/Psych: AO x 3
Data Reviewed
-
Date of Service: June 28, 2025
--- NOTE | 2025-06-28 12:05 | W.PN.HOSP.TC ---
Today's Communication/Plan
-
Continue with IV heparin/nitro drip
Await intervention cardiology input
Continue with aspirin/statin
Assessment / Plan
Assessment / Plan
General: No acute distress
HEENT: Moist mucous membranes and PERRLA
Respiratory: Clear; No Wheezes, Rales or Rhonchi
Cardiac: S1/S2 and Regular Rhythm; No Murmur
GI: Soft, Non Tender, Non Distended and Normal Bowel Sounds
Musculoskeletal: No Clubbing, No Cyanosis and No Edema
Neuro: AO x 3
Patient is a 75y M with PMH significant for ASCVD (carotids), HTN and DM-II who presents to ED complaining of chest pain.
NSTEMI
Multivessel coronary artery disease
- IV heparin protocol.
- Continue with IV nitroglycerin
- Continue ASA. Increase statin dose.
- Status post cardiac catheterization with multivessel coronary artery disease
- Echo with normal biventricular size and systolic function without regional wall motion abnormality. Aortic sclerosis with mild aortic regurgitation. Mildly dilated aortic root.
- CT surgery was consulted and recommending cardiac high risk PCI or CABG surgery. Patient agreeable. Await further input from interventional cardiology.
Benign Hypertension
- Continue amlodipine and irbesartan with holding parameters.
- Hold HCTZ acutely.
- Adjust med regimen as able.
DM-II
- Stable. On Ozempic as an outpatient.
- Follow glucose and cover with SSI as needed.
- Update A1C at 5.7.
GERD
- Continue PPI daily.
BPH
- Continue silodosin.
Mild hyponatremia
-?due to IVF.
Allergies / Asthma
- Stable. Continue Singulair.
DVT Prophylaxis: On heparin gtt
Code Status: Full
Anticipated Discharge: > 48 hours
Subjective/Interval History
-
Date of Service: June 28, 2025
Overnight events were noted
Patient chest pain was started on nitro infusion
Currently remains chest pain-free on nitro drip
States he talked with CT surgery earlier today
Objective Data
-
Labs:
Laboratory Results
06/28/25 06/28/25
05:25 11:37
APTT 77.7 H Pending
Sodium 133 L
Potassium 4.2
Chloride 105
Carbon Dioxide 28
BUN 27 H
Creatinine 1.0
Glucose 103 H
Calcium 8.7
Total Bilirubin 0.7
AST 31
ALT 17
Alkaline Phosphatase 78
Vital Signs:
Vital Signs
Temp Pulse Resp BP Pulse Ox
97.9 F 78 16 121/80 99
06/28/25 11:14 06/28/25 08:00 06/28/25 11:14 06/28/25 07:57 06/28/25 11:14
I&O
06/27/25 06/28/25 06/29/25
06:59 06:59 06:59
Intake Total 500 / 500
Output Total 475 / 475
Balance
[2025-06-28 12:12] LABS: APTT 72.8 Sec (23.4-35.0)
[2025-06-28 12:26] LABS: Glucose - Point of Care 139 mg/dl (70-99)
[2025-06-28 17:26] LABS: Glucose - Point of Care 96 mg/dl (70-99)
--- NOTE | 2025-06-28 18:19 | ITS.CL.PN ---
Insurance Risk Manager - Procedure Note
Procedure
Procedure Note:
CARDIAC CATHETERIZATION REPORT
Date of Procedure: 06/28/2025
Referring: Dr. Jacob Rivera MD
Indication: NSTEMI, turn down for CABG
PROCEDURE(S)
1. PCI with PAMELA to RCA for acute CT
2. coronary angiography
3. IVUS RCA
ACCESS: 7F right common femoral artery (closure: Perclose x1)
CATHETERS
1. 7F AL0.75 guide
MODERATE SEDATION: 60 minutes of moderate sedation was utilized. An independent medical care evaluation specialist was present to assist with and help manage the patient's level of consciousness and physiologic status.
CORONARY ANGIOGRAPHY: Limited angiography of the RCA demonstrated TAVON-1 flow beyond the mid-RCA 95% stenosis that was unchanged from prior diagnostic angiography. After stenting, cranial angiography did not demonstrate evidence of obstructive CAD
distally in the RCA (this could not be previously determined given presence of TAVON-1 flow).
PROCEDURE NARRATIVE:
The decision was made to proceed with PCI with PAMELA to the high grade mid-RCA lesion, the likely culprit lesion for the patient's presentation. Ultrasound guidance was used to obtained right BLAST FURNACE KEEPER HELPER access and a long 7F sheath placed, noting a very
tortuous R iliac. Heparin was given to achieve ACT>300. A 7F AL0.75 guide was used which provided excellent support. A Runthrough wire was placed in the distal RCA. Lesion preparation was performed with serial nominal inflations of a 2.0x12 mm
semicompliant balloon, 2.5 mm NC balloon, and 3.5 mm NC balloon all with full expansion (including in orthogonal projections with the 3.5 mm NC balloon). He had reproducible chest pain during all balloon inflations that reminded him of his
presenting pain. IVUS demonstrated a 4.0 mm reference vessel diameter and non-concentric calcification. A 4.0x28 mm Xience Skypoint PAMELA was delivered with aid of deep guideliner positioning and deployed followed by post-dilation with a 4.0 mm NC
balloon. Final IVUS demonstrated full stent expansion and apposition without edge dissection. Cranial angiography did not demonstrate obstructive disease in the distal RCA (previously this could not be appreciated due to TAVON-1 flow). Careful
angiography was performed after disengaging the AL0.75 guide catheter prior to removing the wire to ensure no proximal vessel dissection given the aggressive guide positioning. The proximal vessel was without evidence of injury. The wire and guide
were removed and the groin closed with Perclose.
RADIATION: dose 815 mGy; DAP 48 Gy*cm2; fluoroscopy time 19.2 min
CONCLUSIONS: Successful IVUS-guided PCI with DESx1 to RCA.
RECOMMENDATIONS
1. Medical management of remaining severe diffuse coronary artery disease with antianginal medication and aggressive secondary prevention of CAD.
2. Given prior statin intolerance, patient will require alternative medication for lipid lowering as outpatient.
3. If ongoing chest pain despite medical management, can consider high risk PCI to LAD.
Copy to: Dr. Sunday Ruvalcaba MD (director of golf); [ ] (PCP)
Signed: Ari Soni MD, PhD
[2025-06-28] MEDS: CRESTOR 40 MG PO (19:41)
[2025-06-28] MEDS: NON-FORMULARY ITEM 8 MG PO (19:42)
[2025-06-28] MEDS: SINGULAIR 10 MG PO (20:14)
[2025-06-28 22:38] LABS: Glucose - Point of Care 113 mg/dl (70-99)
--- NOTE | 2025-06-28 22:49 | PTCARENOTE ---
Received pt @ change of shift. Sitting on edge of bed, AAOx3, VSS-- NSR w/ 1st degree AV block on monitor. Right radial site clean, dry, and intact. No swelling, ecchymosis, or hematoma present @ this time. Right groin site clean, dry, and intact.
No swelling, ecchymosis, or hematoma present @ this time. Pt has urinated and ambulated post cath. C/o 11/18 pain in right groin site, with ambulation. Given Tylenol-- see OCT. Pt states Tylenol helped. Discussed plan of care for morning. Pt
verbalizes understanding. Call colin within reach.
--- NOTE | 2025-06-29 02:57 | DOWNTIME ---
There was a [employer] [facility] Medical Director Downtime on 06/29/2025 from 0100 to 06/29/2025 at 0255. Downtime documentation of patient's care, including medication administrations, has been reconciled in the electronic record per guidelines. Refer to the
patient's paper chart under the miscellaneous tab to see printed paper medication records and downtime forms.
[2025-06-29 03:33] VITALS: BP 128/56
[2025-06-29 04:15] LABS: Hematocrit 37.0 % (39.0-52.0); Hemoglobin 12.5 g/dL (13.0-18.0); Mean Corp Hgb Conc. 33.8 g/dL (33.0-37.0); Mean Corpuscular Volume 94.4 fL (80.0-94.0); Platelet Count 154 10^3/uL (130-400); Red Cell Dist. Width 12.1 % (11.5-14.5)
[2025-06-29 04:41] LABS: ALT (SGPT) 18 U/L (0-50); AST (SGOT) 39 U/L (17-59); Albumin 3.7 g/dl (3.5-5.0); Alkaline Phosphatase 75 U/L (38-126); Blood Urea Nitrogen 21 mg/dl (9-20); Calcium 8.9 mg/dl (8.4-10.2); Carbon Dioxide 25 mmol/L (22-30); Chloride 105 mmol/L (98-107); Estimated Creatinine Clearance 70 ml/min; Glucose 96 mg/dl (70-99); Potassium 4.1 mmol/L (3.5-5.1); Sodium 134 mmol/L (135-145); Total Protein 6.1 g/dl (6.3-8.2); eGFR > 60.00
[2025-06-29 06:00] VITALS: BMI 32.5
--- NOTE | 2025-06-29 08:00 | PTCARENOTE ---
Assumed care of pt from prev nsg shift; Pt AAOx3 w/no c/o CP or SOB. Pt w/VSS w/HR in the 90's & BP 129/77 this AM. Pt is SR w/1st deg AVB on telemetry monitoring. 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
or hematoma at either site. Pt anxious for D/C today. Awaiting MD input. Pt w/call colin within reach & plan of care ongoing.
[2025-06-29 08:12] VITALS: BP 129/77
[2025-06-29 08:40] LABS: Glucose - Point of Care 107 mg/dl (70-99)
[2025-06-29] MEDS: AVAPRO 150 MG PO (09:50)
[2025-06-29] MEDS: LOW STRENGTH ASPIRIN 81 MG PO (09:50)
[2025-06-29] MEDS: PLAVIX 75 MG PO (09:50)
[2025-06-29] MEDS: SINGULAIR PO ×2 (09:51→09:53)
[2025-06-29] MEDS: PROTONIX 40 MG PO (09:51)
[2025-06-29] MEDS: NON-FORMULARY ITEM PO ×2 (09:51→09:56)
[2025-06-29] MEDS: NORVASC 2.5 MG PO (09:51)
[2025-06-29 11:05] VITALS: BP 112/99
--- NOTE | 2025-06-29 11:12 | W.PN.HOSP.TC ---
Today's Communication/Plan
-
Await cards input
Continue with aspirin Plavix statin
Recommend out of bed with activity
Assessment / Plan
Assessment / Plan
General: No acute distress
HEENT: Moist mucous membranes and PERRLA
Respiratory: Clear; No Wheezes, Rales or Rhonchi
Cardiac: S1/S2 and Regular Rhythm; No Murmur
GI: Soft, Non Tender, Non Distended and Normal Bowel Sounds
Musculoskeletal: No Clubbing, No Cyanosis and No Edema
Neuro: AO x 3
Patient is a 75y M with PMH significant for ASCVD (carotids), HTN and DM-II who presents to ED complaining of chest pain.
NSTEMI
Multivessel coronary artery disease
- s/p IV hep and IV nitro
- Continue ASA. Increase statin dose.
- Status post diagnostic cardiac catheterization with multivessel coronary artery disease
- Echo with normal biventricular size and systolic function without regional wall motion abnormality. Aortic sclerosis with mild aortic regurgitation. Mildly dilated aortic root.
- CT surgery was consulted and recommending PCI
- ECHO normal biventricular size and systolic function without regional wall motion abnormality. Aortic sclerosis. Mild dilated aortic root
- Patient underwent repeat cardiac catheterization 06/28/2025 status post PCI with PAMELA x1 to RCA
- On asa. Plavix added. Patient to follow-up with cardiac rehab
Benign Hypertension
- Continue amlodipine and irbesartan with holding parameters.
- Hold HCTZ acutely.
- Adjust med regimen as able.
DM-II
- Stable. On Ozempic as an outpatient.
- Follow glucose and cover with SSI as needed.
- Update A1C at 5.7.
GERD
- Continue PPI daily.
BPH
- Continue silodosin.
Mild hyponatremia
- Sodium improved
Allergies / Asthma
- Stable. Continue Singulair.
DVT Prophylaxis: Lovenox
Code Status: Full
Anticipated Discharge: Today
Subjective/Interval History
-
Date of Service: June 29, 2025
Denies any chest pain or shortness of breath or lightheadedness or dizziness
Objective Data
-
Labs:
Laboratory Results
06/29/25
03:44
WBC 5.1
Hgb 12.5 L
Hct 37.0 L
Plt Count 154
Sodium 134 L
Potassium 4.1
Chloride 105
Carbon Dioxide 25
BUN 21 H
Creatinine 0.9
Glucose 96
Calcium 8.9
Total Bilirubin 0.8
AST 39
ALT 18
Alkaline Phosphatase 75
Vital Signs:
Vital Signs
Temp Pulse Resp BP Pulse Ox
98.6 F 83 16 129/77 98
06/29/25 11:09 06/29/25 08:15 06/29/25 11:09 06/29/25 08:12 06/29/25 11:09
I&O
06/28/25 06/29/25 06/30/25
06:59 06:59 06:59
Intake Total 500 / 500 720 / 720
Output Total 475 / 475 300 / 300
Balance 420 / 420
[2025-06-29 12:19] LABS: Glucose - Point of Care 105 mg/dl (70-99)
--- NOTE | 2025-06-29 14:42 | W.PN.CD ---
Today's Communication / Plan
-
home today
explained appropriate ntg use
dapt for 1 year
resume home statin and zetia
Impression / Plan
-
I/P: 75M with PAD (s/p B/L CEA), HTN, HLD, & T2DM who presents with chest pain
Primary behavioral health assistant: Dr. Ruvalcaba
NSTEMI, peak trop 2.6, LVEF 55-60% with normal wall motion
3V CAD-refused for cab, had PCI to culprit vessel (RCA) 06/28/25. Continue med management
NO BB given very long 1st degree av block with possible jcn rhythm seen at times. .
HTN-hold off on resuming hctz at this time, he has had low bp.
PAD, s/p B/L CEA
HLD, on rosuvastatin & ezetimibe, had myalagia on 10mg daily but tolerating three times a week, ldl at goal. Will resume zetia.
Type 2 diabetes, with hyperglycemia, on Ozempic
GERD
Subjective:
he is anxoius for dischage.
Physical Exam
Vital Signs/Labs
Vital Signs
Temp Pulse Resp BP Pulse Ox
98.6 F 100 16 112/99 98
06/29/25 11:09 06/29/25 11:30 06/29/25 11:09 06/29/25 11:05 06/29/25 11:09
06/28/25 06/29/25 06/30/25
06:59 06:59 06:59
Actual Weight 195 lb 12.328 oz 195 lb 5.273 oz
06/29/25 03:44
06/29/25 03:44
PT 14.4 Sec (11.4-14.6) 06/27/25 16:52
INR 1.09 06/27/25 16:52
APTT Cancelled 06/28/25 18:35
Magnesium 2.2 mg/dl (1.6-2.3) 06/28/25 05:25
Triglycerides 96 mg/dl (10-149) 06/28/25 05:25
LDL Cholesterol, Calc 41 mg/dl 06/28/25 05:25
VLDL Cholesterol, Calc 19 mg/dl (0-30) 06/28/25 05:25
HDL Cholesterol 42 mg/dl 06/28/25 05:25
LAB Results
06/27/25 06/27/25 06/27/25
02:23 09:38 16:52
Troponin I 0.440 H* 1.530 H* D 2.470 H* D
06/27/25 06/27/25 06/28/25
20:09 22:37 05:25
Troponin I Cancelled 2.640 H* 2.000 H*
Physical Exam
Constitutional: No acute distress
Cardiovascular: Rhythm & rate is regular, Pedal edema is absent, JVD pressure is normal, Systolic murmur absent and Diastolic murmur absent
Respiratory: Respiratory effort normal, Lungs clear to auscul., Wheeze Absent, Crackles Absent and Rhonchi Absent
Neuro/Psych: AO x 3
Other: Cath Site (RFA site soft and well healed)
Data Reviewed
-
Date of Service: June 29, 2025
EKG: Other (tele sinus with pr prolongation)
--- NOTE | 2025-06-29 15:05 | W.DCSUMMARY ---
Discharge Summary
Discharge Data
Date of Admission: 06/27/25
Date of Discharge: 06/29/25
-
Pending Results: No
Hospital Course
75-year-old male past medical history of hypertension, diabetes, BPH is presenting from home with complaint of chest pain. Patient with elevated troponin. Started on heparin infusion. Patient underwent diagnostic catheterization which showed
multivessel coronary artery disease. CT surgery was consulted and recommended high risk PCI. Echocardiogram was performed. Echo with normal biventricular size and systolic function without regional wall motion abnormality. Aortic sclerosis with
mild aortic regurgitation. Mildly dilated aortic root. Patient with persistent chest pain and was on IV nitroglycerin. Hydrochlorothiazide was held and was stopped on discharge. Patient underwent repeat cardiac catheterization with PCI with PAMELA
x 1 to RCA. Post stent placement patient chest pain resolved. Off nitroglycerin drip. Patient was continued on aspirin and the Plavix was added. Patient be discharged home with recommendation to follow-up with climbing guide and primary doctor
upon discharge.
Discharge Plan
-
Patient Disposition: Home (Routine Discharge)
Discharge Diagnosis/Procedures: NSTEMI, Angioplasty and stent to Right Coronary artery
Diet: Low Cholesterol
Activity: As tolerated
Driving Restrictions: No driving for 24 hours
Other Services: Cardiac Rehab
Activity Restrictions/Additional Instructions:
Keep daily log of your blood pressures at home to review with your primary care provider in follow up.
Please take medications as prescribed/recommended and follow up with primary care provider and/or other healthcare provider involved in your care for refills and/or further adjustment to your medication regimen as necessary. �
Stand Alone Forms: DC Instructions- Cath/EP Lab
Referrals:
[facility] [Outside] - 07/21/25 9:00 am
Referral Note: Cardiac Rehab Orientation appointment is on 07/21/25 (Th) at 9:00 am
The Cardiac Rehab gym is located on the first floor of the [facility].
Connie Bell CRNP [Specified Professional Personl, Cardiology] - 07/29/25 8:40 am
Frantz Hernandez MD [Family Provider, [facility]] - in less than 1 week
Referral Note: follow up for blood pressure management.
Additional Discharge Medication Instructions: Hydrocholrothiazide was discontinued for now.
Prescriptions:
New
clopidogrel 75 mg Tablet
75 mg PO DAILY Qty: 30 0RF
nitroglycerin 0.4 mg Tablet, Sublingual
0.4 mg sublingual [id number] PRN (Reason: Chest Pain) Qty: 10 0RF
rosuvastatin [Crestor] 10 mg tablet
10 mg PO .MoWeFri Qty: 30 0RF
Continued
amlodipine 2.5 mg Tablet
2.5 mg PO DAILY
desloratadine 5 mg Tablet
5 mg PO QPM
pantoprazole 40 mg Tablet,Delayed Release (Dr/Ec)
40 mg PO DAILY
montelukast 10 mg Tablet
10 mg PO HS
aspirin 81 mg Tablet
81 mg PO HS
irbesartan 150 mg Tablet
150 mg PO QPM
azelastine 137 mcg (0.1 %) [place],Non-Aerosol
2 spray INTRANASAL BID
silodosin 8 mg Capsule
8 mg PO QPM
Ozempic 2 mg/dose (8 mg/3 mL) Pen Injector
2 mg SC SA
ezetimibe 10 mg Tablet
10 mg PO DAILY Qty: 30 0RF
Discontinued
rosuvastatin 10 mg Tablet
10 mg PO QPM
hydrochlorothiazide 12.5 mg Tablet
25 mg PO DAILY
Discharge Orders:
Discharge Patient (As Directed); Ordered 06/29/25
Ordered By: Abimael Rico
Care Plan Goals
Care Plan Goals:
Problem: Readiness for enhanced knowledge related to diagnosis and treatment plan
Goal: Understand your diagnosis and treatment plan needs, including medications if applicable.
Instructions: Know your diagnosis, underlying causes and treatment plan options, including medications if applicable. Consult with your health care team to learn about your diagnosis and treatment plan, including medications if applicable.
Discharge Date and Time
Discharge Date/Time: 06/29/25 15:55
Print Language: ITALIAN
[2025-06-29 15:10] VITALS: BP 115/69
--- NOTE | 2025-06-29 15:58 | PTCARENOTE ---
Pt's IV lines & director of maternity services D/C'd. D/C instructions discussed w/pt & spouse. Pt escorted out via WC w/spouse driving pt home. Pt left w/personal belongings including cell phone, bilat hearing aids & chargers for both.
[2025-06-30 10:18] LABS: ACT-LR - POC 342 Seconds (116-155)
[2025-06-30 10:18] LABS: ACT-LR - POC 313 Seconds (116-155)
== END 2025-06-29 15:55 | disposition home or self-care (01) | DRG 322 ==
LOC: IVU 05:40
PROVIDERS: Internal Medicine Cardiovascular Disease; Nurse Practitioner; Physician Assistant Medical; Student in an Organized Health Care Education/Training Program; ADMITTING PHYSICIAN Hospitalist; ATTENDING PHYSICIAN Hospitalist; CONSULT PHYSICIAN Internal Medicine Cardiovascular Disease; CONSULT PHYSICIAN Thoracic Surgery (Cardiothoracic Vascular Surgery); EMERGENCY PHYSICIAN Emergency Medicine; FAMILY PHYSICIAN Family Medicine
PROC: 4A023N7 Measurement of Cardiac Sampling and Pressure, Left Heart, Percutaneous Approach (ICD-10-PCS; 2025-06-27)
PROC: B2111ZZ Fluoroscopy of Multiple Coronary Arteries using Low Osmolar Contrast (ICD-10-PCS; 2025-06-27)
PROC: 027034Z Dilation of Coronary Artery, One Artery with Drug-eluting Intraluminal Device, Percutaneous Approach (ICD-10-PCS; 2025-06-28)
PROC: B240ZZ3 Ultrasonography of Single Coronary Artery, Intravascular (ICD-10-PCS; 2025-06-28)
PROC: B2101ZZ Fluoroscopy of Single Coronary Artery using Low Osmolar Contrast (ICD-10-PCS; 2025-06-28)
DX: I21.4 Non-ST elevation (NSTEMI) myocardial infarction (principal); E87.1 Hypo-osmolality and hyponatremia; I25.10 Atherosclerotic heart disease of native coronary artery without angina pectoris; I10 Essential (primary) hypertension; E11.9 Type 2 diabetes mellitus without complications; I70.0 Atherosclerosis of aorta; K21.9 Gastro-esophageal reflux disease without esophagitis; N40.0 Benign prostatic hyperplasia without lower urinary tract symptoms; J45.909 Unspecified asthma, uncomplicated; Z88.2 Allergy status to sulfonamides; Z79.82 Long term (current) use of aspirin; I70.8 Atherosclerosis of other arteries; Z91.018 Allergy to other foods; Z79.85 Long-term (current) use of injectable non-insulin antidiabetic drugs; E78.00 Pure hypercholesterolemia, unspecified; Z79.899 Other long term (current) drug therapy; Z82.49 Family history of ischemic heart disease and other diseases of the circulatory system; Z87.891 Personal history of nicotine dependence
CPT/HCPCS: 71046; 71250; 80053; 80061; 82248; 82962; 83036; 83690; 83735; 84484; 85025; 85027; 85347; 85610; 85652; 85730; 86140; 86850; 86900; 86901; 92978; 93005; 93306; 93458; 93880; 99152; 99153; C1725; C1753; C1760; C1769; C1874; C1894; C9600; Q9967

== ENCOUNTER 2025-07-05 09:29 | Emergency (ER) | payer MEDICARE, OTHER, SELFPAY ==
[2025-07-05] VITALS (11 sets, daily range): BP systolic 130–173; BP diastolic 54–77; BMI 34.3
--- NOTE | 2025-07-05 10:11 | ED.GENMED ---
History of Present Illness
<Robert Durham MD - Last Filed: 07/05/25 15:04>
General
Chief Complaint: Chest Pain
Time Seen by Provider: 07/05/25 10:01
History of Present Illness
History of Present Illness:
Patient presents to the emergency department with chest pain. Was admitted and discharged last week after an NSTEMI and had an RCA stent placed. States over the past couple of days he has been having some chest pain with inspiration. Pain is
central in his chest and nonradiating. No associated dyspnea. His notes that he did look pale yesterday. Endorses some mild lower extremity edema bilaterally that is new.
Past History
<Robert Durham MD - Last Filed: 07/05/25 15:04>
Past History
ED Past Medical History: Asthma, GERD (Hiatal hernia), HTN, Hypercholesterolemia, NIDDM and Other (BPH)
ED Past Surgical History: Orthopedic
Social History
Tobacco: Non-smoker
Alcohol: Occasional
Drug: None
Personal:
Living: with family
Employment: Retired
Family History
Family History: CAD (Both father and brother with history of CAD/MIs in their 40s.)
Phy Exam
<Robert Durham MD - Last Filed: 07/05/25 15:04>
Physical Exam
Physical Exam:
GENERAL APPEARANCE: NAD, well developed/ well nourished
EYES lids/conjunctiva normal
EARS/NOSE/THROAT Mucous membranes moist, uvula midline without oral pharyngeal erythema, exudate or swelling
HEAD/NECK normocephalic atraumatic, neck is supple.
RESPIRATORY respiratory effort normal, speaks in full sentences, no accessory muscle use. Lungs clear to auscultation without rhonchi, wheezes, rales
CARDIAC Regular rate and rhythm
ABDOMINAL Soft, ND/NT. No pulsatile masses on exam, rebound tenderness
MUSCLES/EXTREMITIES No abnormal range of motion, trace pitting edema symmetric bilaterally, vascular access site to right groin is well-healing with small amount of ecchymosis.
SKIN Warm, pink and dry. No rashes
NEUROLOGICAL Speech is clear and appropriate. Normal level of consciousness. 5/5 strength in all extremities.
PSYCH Normal mood and affect. Judgement/competence is appropriate
Scores
<Zachary Villalta DO - Last Filed: 07/05/25 17:20>
Heart Score for Chest Pain Patients
STEMI patient?: Not applicable
Course
<Robert Durham MD - Last Filed: 07/05/25 15:04>
Orders/Labs/Results
Orders:
Orders
07/05/25 09:33
EKG [Electrocardiogram (*1)] Urgent
Reason for Study: Chest Pain
07/05/25 09:34
EKG- Treatment ONCE
07/05/25 10:11
CR Chest - 2 Views Urgent
Comment:
Reason For Exam: cp
07/05/25 10:26
Basic Metabolic Panel Urgent
C-Reactive Protein Urgent
Comment: ADD ON
Complete Blood Count/With Diff Urgent
D-Dimer Urgent
Erythrocyte Sed Rate Urgent
Comment: ADD ON
Magnesium Urgent
NT-proBNP Urgent
PTT Stat
Prothrombin Time Urgent
Troponin I Urgent
07/05/25 11:34
CT Chest PE Study Urgent
Comment:
Reason For Exam: chest pain
07/05/25 14:38
Echo Follow-up Study Urgent
Reason for Study: Pleuritic CP s/p PCI
Comment: Rule out pericardial effusion
07/05/25 15:13
Add On- LAB Urgent
Tests Added?: CRP, ESR
07/05/25 15:45
Colchicine 0.6 mg PO NOW STA
07/05/25 20:00
Colchicine 0.6 mg PO BID
Abnormal Lab Results
07/05/25
10:26
WBC 4.1 L 10^3/uL
(4.8-10.8)
RBC 3.79 L 10^6/uL
(4.70-6.10)
Hgb 12.0 L g/dL
(13.0-18.0)
Hct 36.5 L %
(39.0-52.0)
MCV 96.3 H fL
(80.0-94.0)
MCH 31.7 H pg
(27.0-31.0)
MCHC 32.9 L g/dL
(33.0-37.0)
Absolute Lymphs (auto) 1.1 L 10^3/uL
(1.2-3.4)
ESR 27 H mm/hour
(0-20)
D-Dimer 1.19 H ug/mlFEU
(0.00-0.50)
BUN 22 H mg/dl
(9-20)
Troponin I 0.209 H* ng/ml
07/05/25 10:26
07/05/25 10:26
Vital Signs
Initial and Last Documented VS:
Initial Vital Signs
Temp Pulse Resp BP Pulse Ox
98.5 F 72 18 173/73 100
07/05/25 09:45 07/05/25 09:45 07/05/25 09:45 07/05/25 09:45 07/05/25 09:45
Last Documented Vital Signs
Temp Pulse Resp BP Pulse Ox
98.5 F 56 18 130/58 99
07/05/25 09:45 07/05/25 16:26 07/05/25 15:00 07/05/25 16:26 07/05/25 13:00
<Zachary Villalta, DO - Last Filed: 07/05/25 17:20>
Orders/Labs/Results
Orders:
Orders
07/05/25 09:33
EKG [Electrocardiogram (*1)] Urgent
Reason for Study: Chest Pain
07/05/25 09:34
EKG- Treatment ONCE
07/05/25 10:11
CR Chest - 2 Views Urgent
Comment:
Reason For Exam: cp
07/05/25 10:26
Basic Metabolic Panel Urgent
C-Reactive Protein Urgent
Comment: ADD ON
Complete Blood Count/With Diff Urgent
D-Dimer Urgent
Erythrocyte Sed Rate Urgent
Comment: ADD ON
Magnesium Urgent
NT-proBNP Urgent
PTT Stat
Prothrombin Time Urgent
Troponin I Urgent
07/05/25 11:34
CT Chest PE Study Urgent
Comment:
Reason For Exam: chest pain
07/05/25 14:38
Echo Follow-up Study Urgent
Reason for Study: Pleuritic CP s/p PCI
Comment: Rule out pericardial effusion
07/05/25 15:13
Add On- LAB Urgent
Tests Added?: CRP, ESR
07/05/25 15:45
Colchicine 0.6 mg PO NOW STA
07/05/25 20:00
Colchicine 0.6 mg PO BID
Abnormal Lab Results
07/05/25
10:26
WBC 4.1 L 10^3/uL
(4.8-10.8)
RBC 3.79 L 10^6/uL
(4.70-6.10)
Hgb 12.0 L g/dL
(13.0-18.0)
Hct 36.5 L %
(39.0-52.0)
MCV 96.3 H fL
(80.0-94.0)
MCH 31.7 H pg
(27.0-31.0)
MCHC 32.9 L g/dL
(33.0-37.0)
Absolute Lymphs (auto) 1.1 L 10^3/uL
(1.2-3.4)
ESR 27 H mm/hour
(0-20)
D-Dimer 1.19 H ug/mlFEU
(0.00-0.50)
BUN 22 H mg/dl
(9-20)
Troponin I 0.209 H* ng/ml
07/05/25 10:26
07/05/25 10:26
Vital Signs
Initial and Last Documented VS:
Initial Vital Signs
Temp Pulse Resp BP Pulse Ox
98.5 F 72 18 173/73 100
07/05/25 09:45 07/05/25 09:45 07/05/25 09:45 07/05/25 09:45 07/05/25 09:45
Last Documented Vital Signs
Temp Pulse Resp BP Pulse Ox
98.5 F 56 18 130/58 99
07/05/25 09:45 07/05/25 16:26 07/05/25 15:00 07/05/25 16:26 07/05/25 13:00
<Robert Durham MD - Last Filed: 07/05/25 15:04>
*Pulse Oximetry
SaO2: 99
Oxygen Mode of Delivery: Room air
<Zachary Villalta DO - Last Filed: 07/05/25 17:20>
*Pulse Oximetry
Patient hypoxic: no
*Critical Care Note
Total Time (30-74mins, 75-104mins- exclusive of procedures): Not Applicable
<Zachary Villalta DO - Last Filed: 07/05/25 17:20>
Update Note
Update Note:
5:15 PM care of patient transitioned pending echo. Patient had recent cardiac catheterization with stent placement. Patient presented with chest pain. Exam consistent with likely pericarditis. Echo negative. Cardiology comfortable with
discharge and treating with colchicine. Patient comfortable with plan
ED Attending Note
<Robert Durham MD - Last Filed: 07/05/25 15:04>
ED Attending Note
ED Attending Note:
Patient with recent admission for DC status post PCI with 1 RCA stent presents with pleuritic chest pain. He is hemodynamically stable, well-appearing. EKG without any acute ischemic changes. Plan to check cardiac labs, rule out DVT/PE, consult
cardiology.
Cardiology evaluated Dr Wood . Recommends colchicine for possible post DC pericarditis. They will do limited echo at this time prior to dispo
-
Portions of this chart may have been created with voice recognition software.� Occasional wrong word or��sound alike� substitutions may have occurred due to the inherent limitations of voice recognition software.
Discharge Plan
Departure
Patient Disposition: Home (Routine Discharge)
Date of Disposition: 07/05/25
Time of Disposition: 17:18
Patient with high blood pressure during this ER visit?: No
Discharge Problem:
Pericarditis
Instructions: Pericarditis
Prescriptions:
New
colchicine 0.6 mg capsule
0.6 mg PO BID Qty: 30 0RF
No Action
amlodipine 2.5 mg Tablet
2.5 mg PO DAILY
desloratadine 5 mg Tablet
5 mg PO DAILY
pantoprazole 40 mg Tablet,Delayed Release (Dr/Ec)
40 mg PO DAILY
montelukast 10 mg Tablet
10 mg PO HS
aspirin 81 mg Tablet
81 mg PO HS
irbesartan 150 mg Tablet
150 mg PO QPM
azelastine 137 mcg (0.1 %) [place],Non-Aerosol
2 spray INTRANASAL BID
silodosin 8 mg Capsule
8 mg PO QPM
Ozempic 2 mg/dose (8 mg/3 mL) Pen Injector
2 mg SC SA
nitroglycerin 0.4 mg Tablet, Sublingual
0.4 mg sublingual [id number] PRN (Reason: Chest Pain) Qty: 10 0RF
tadalafil 5 mg Tablet
5 mg PO QPM
clopidogrel 75 mg tablet
75 mg PO DAILY
ezetimibe 10 mg tablet
10 mg PO DAILY
rosuvastatin [Crestor] 10 mg tablet
10 mg PO MOWEFR@1900
Referrals:
Frantz Hernandez MD [Family Provider, Family Practice]
Activity Restrictions/Additional Instructions:
Please return for any worsening symptoms.
You may return at any time if you have further concerns.
Please follow up with your doctor at the first available appointment, preferably this week.
Please keep your cardiology followup.
Thank you for choosing [facility].
Interventions
Interventions:
*Risk Screen - Suicide Last Done: 07/05/25 09:45
*General Assessment Last Done: 07/05/25 09:45
*Neglect/Abuse Screening Last Done: 07/05/25 09:45
*ED- Fall Risk Assessment Last Done: 07/05/25 10:47
*ED COVID-19 Vaccine History Last Done: 07/05/25 09:45
*ED Influenza Vaccine History Last Done: 07/05/25 09:45
ED- Cardiac Assessment Last Done: 07/05/25 10:29
Discharge Date and Time
Print Language: FAROESE
[2025-07-05 10:50] LABS: Hematocrit 36.5 % (39.0-52.0); Hemoglobin 12.0 g/dL (13.0-18.0); Mean Corp Hgb Conc. 32.9 g/dL (33.0-37.0); Mean Corpuscular Volume 96.3 fL (80.0-94.0); Nucleated Red Blood Cells % 0 % (-); Platelet Count 167 10^3/uL (130-400); Red Cell Dist. Width 12.3 % (11.5-14.5)
[2025-07-05 11:06] LABS: APTT 34.9 Sec (23.4-35.0); INR 1.05; PT 14.0 Sec (11.4-14.6)
[2025-07-05 11:09] LABS: D-Dimer 1.19 ug/mlFEU (0.00-0.50)
[2025-07-05 11:17] LABS: Blood Urea Nitrogen 22 mg/dl (9-20); Calcium 8.9 mg/dl (8.4-10.2); Carbon Dioxide 29 mmol/L (22-30); Chloride 105 mmol/L (98-107); Estimated Creatinine Clearance 66 ml/min; Glucose 95 mg/dl (70-99); Magnesium 2.3 mg/dl (1.6-2.3); Potassium 4.6 mmol/L (3.5-5.1); Sodium 137 mmol/L (135-145); eGFR > 60.00
[2025-07-05 11:20] LABS: Troponin I 0.209 ng/ml
--- NOTE | 2025-07-05 15:02 | CON.CAR ---
Addendum entered and electronically signed by Andrew Wood MD 07/05/25 15:33:
I saw and evaluated the patient, and I provided the substantive portion of the medical decision making.
I reviewed and agree with the note by Ms Bell and it accurately reflects our care.
I personally performed the medical decision making of the this encounter and my assessment and plan is below:
Patient's symptoms are difficult to define. He does not have typical symptoms of pericarditis; his main symptom is that of intermittent discomfort in the left shoulder area with deep inspiration. Additionally, he has noticed some tightening in his
legs over the last 48 hours as well. However, given recent NSTEMI and stopping of his HCTZ we will treat him for pericarditis and resume his HCTZ.
Additionally, we will obtain a limited echo to rule out any significant effusion or new wall motion abnormalities.
Original Note:
Consultation
Consultation Request
Date/Time Consultation Requested: 07/05/2025 14:35
Date/Time Consultation Performed: 07/05/2025 14:50
Requesting Provider: Dr. Durham
Performing Provider: TETO Landis for Dr. Wood
Reason for Consultation: Chest pain
Medical History
-
Chief Complaint: Chest pain
History of Present Illness:
Fidencio Sierra is a 75 year old male (known to Dr. Ruvalcaba, his primary card clothier) with PAD (s/p B/L CEA), HTN, HLD, & T2DM with recent admission for NSTEMI with peak troponin 2.640 and PAMELA to RCA presents to the emergency
department with a chief complaint of chest pain. His chest pain gets worse with a deep breath but not all the time. It does not change with positions. He describes it as left anterior discomfort with occasional tightness. He was seen by his PCP
today. An EKG was performed and reported as abnormal, with these results she referred him to the emergency department. No chest discomfort at the time of this consultation. CT PE did not demonstrate PE but did show a small pericardial effusion.
Troponin has trended down to 0.209. He does endorse some mild swelling in his bilateral lower extremities which he is attributing to the discontinuation of his HCTZ.
Past Medical History
Past Medical History: CAD (PAMELA to RCA 06/28/2025), GERD, HTN, Hypercholesterolemia, NIDDM and Other (PAD [bilateral CEA])
Past Surgical History: Orthopedic and Other (Bilateral CEA)
Social History
Tobacco: Non-Smoker
Alcohol: Occasional
Drug: None
Personal:
Employment: Employed ([employer])
Family History
Family History: Reviewed & Not Pertinent
Allergies / Home Medications
Allergy/AdvReac Type Severity Reaction Status Date / Time
niacin Allergy Swelling Verified 07/05/25 09:49
strawberry Allergy Anaphylaxis Verified 07/05/25 09:49
Sulfa (Sulfonamide Allergy Unknown Verified 07/05/25 09:49
Antibiotics)
�Medication �Instructions �Recorded �Confirmed �Type
amlodipine 2.5 mg tablet 2.5 mg PO DAILY Blood Pressure 06/27/25 07/05/25 History
aspirin 81 mg tablet 81 mg PO HS Heart Disease/Condition 06/27/25 07/05/25 History
azelastine 137 mcg (0.1 %) nasal 2 spray intranasal BID Allergies 06/27/25 07/05/25 History
spray
desloratadine 5 mg tablet 5 mg PO DAILY Allergies 06/27/25 07/05/25 History
irbesartan 150 mg tablet 150 mg PO QPM High Cholesterol 06/27/25 07/05/25 History
montelukast 10 mg tablet 10 mg PO HS Allergies 06/27/25 07/05/25 History
pantoprazole 40 mg tablet,delayed 40 mg PO DAILY Gastrointestinal 06/27/25 07/05/25 History
release Issue
semaglutide 2 mg/dose (8 mg/3 mL) 2 mg SC SA Weight Gain 06/27/25 07/05/25 History
subcutaneous pen injector (Ozempic)
silodosin 8 mg capsule 8 mg PO QPM Urinary Issue 06/27/25 07/05/25 History
nitroglycerin 0.4 mg sublingual 0.4 mg sublingual [id number] PRN 06/29/25 07/05/25 Rx
tablet Chest Pain #10 tabs
clopidogrel 75 mg tablet 75 mg PO DAILY Blood Clot 07/05/25 07/05/25 History
Prevention/Tx
ezetimibe 10 mg tablet 10 mg PO DAILY High Cholesterol 07/05/25 07/05/25 History
rosuvastatin 10 mg tablet (Crestor) 10 mg PO MOWEFR@1900 High 07/05/25 07/05/25 History
Cholesterol
tadalafil 5 mg tablet 5 mg PO QPM Urinary Issue 07/05/25 07/05/25 History
Review of Systems
-
History Source: Patient
All other systems: Negative unless noted
Constitutional: No Symptoms
EENT: No Symptoms
Respiratory: No Symptoms
Cardiac: No Symptoms
Abdomen/GI: No Symptoms
: No Symptoms
Musculoskeletal: Edema
Skin: No Symptoms
Neurological: No Symptoms
Endocrine: No Symptoms
Hematologic/Lymphatic: No Symptoms
Physical Exam
Vital Signs
Temp Pulse Resp BP Pulse Ox
98.5 F 82 16 149/59 99
07/05/25 09:45 07/05/25 15:00 07/05/25 12:00 07/05/25 15:00 07/05/25 13:00
Lab Results
07/05/25 10:26
07/05/25 10:26
Troponin I 0.209 ng/ml H* 07/05/25 10:26
Azj-J-Ksrlyogjenb Pept 1140 pg/ml 07/05/25 10:26
Physical Exam
General: Well Developed, Well Nourished, No Apparent Distress and Comfortable
HEENT: Normocephalic, Anicteric and Moist Mucous Membranes
Respiratory: Clear and Non Labored Respirations
Cardiac: S1/S2 and Regular Rhythm
Breast: Deferred by me
GI: Soft, Non Tender, Non Distended and Normal Bowel Sounds
Rectal: Deferred by Provider
Genito-urinary: No Costovertebral Tender
Musculoskeletal: No Clubbing, No Cyanosis and No Edema
Skin: Warm and Dry
Neuro: AO x 3
Hematologic/Lymphatic: No Lymphadenopathy
Psych: Calm
Impression / Plan
-
I/P: 75M with PAD (s/p B/L CEA), HTN, HLD, & T2DM with NSTEMI 06/27/25 s/p PAMELA to RCA 06/28/2025 presents with CP
Primary card clothier: Dr. Ruvalcaba
Chest pain
- Intermittently pleuritic, does not worsen with exertion
- Troponin trending down, no PE
- ESR and CRP pending
CAD, s/p NSTEMI 06/27/2025
- PCI to culprit vessel, declined CABG as he had 3V CAD
- Continue DAPT with clopidogrel and aspirin for at least 1 year, long Jevity per primary card clothier as he has multivessel disease
- He is not on a beta-theodore as he had bradycardia along with a junctional rhythm which has resolved
Pericardial fusion, small, noted on CT, limited echocardiogram today
HTN
- Above goal with 'tightness' in his bilateral lower extremities, resume HCTZ
PAD, s/p B/L CEA
HLD, on rosuvastatin & ezetimibe, LDL below goal at 41 during prior hospitalization
Type 2 diabetes, controlled, on Ozempic, Hgba1c 5.7%
GERD
[2025-07-05 16:04] LABS: C-Reactive Protein < 5.00 mg/L (0.0-10.00)
[2025-07-05] MEDS: COLCHICINE 0.6 MG PO (16:05)
== END 2025-07-05 17:39 | disposition home or self-care (01) ==
LOC: EMR 09:29
PROVIDERS: EMERGENCY PHYSICIAN Emergency Medicine; FAMILY PHYSICIAN Family Medicine
DX: I31.9 Disease of pericardium, unspecified (principal); I31.39 Other pericardial effusion (noninflammatory); E11.9 Type 2 diabetes mellitus without complications; I25.10 Atherosclerotic heart disease of native coronary artery without angina pectoris; I10 Essential (primary) hypertension; E78.00 Pure hypercholesterolemia, unspecified; I25.2 Old myocardial infarction; I73.9 Peripheral vascular disease, unspecified; J45.909 Unspecified asthma, uncomplicated; K21.9 Gastro-esophageal reflux disease without esophagitis; N40.0 Benign prostatic hyperplasia without lower urinary tract symptoms; Z79.82 Long term (current) use of aspirin; Z79.02 Long term (current) use of antithrombotics/antiplatelets; Z79.85 Long-term (current) use of injectable non-insulin antidiabetic drugs; Z95.5 Presence of coronary angioplasty implant and graft; Z82.49 Family history of ischemic heart disease and other diseases of the circulatory system
CPT/HCPCS: 99284; 71046; 71275; 80048; 83735; 83880; 84484; 85025; 85379; 85610; 85652; 85730; 86140; 93005; 93308; Q9967

== ENCOUNTER 2025-08-10 08:47 | Outpatient (RCR) | payer MEDICARE, OTHER, SELFPAY ==
[2025-08-01 07:39] LABS: Glucose - Point of Care 115 mg/dl (70-99)
[2025-08-01 08:14] LABS: Glucose - Point of Care 105 mg/dl (70-99)
[2025-08-03 08:06] LABS: Glucose - Point of Care 101 mg/dl (70-99)
[2025-08-03 09:10] LABS: Glucose - Point of Care 96 mg/dl (70-99)
[2025-08-05 08:10] LABS: Glucose - Point of Care 113 mg/dl (70-99)
[2025-08-05 08:59] LABS: Glucose - Point of Care 106 mg/dl (70-99)
[2025-08-08 08:17] LABS: Glucose - Point of Care 106 mg/dl (70-99)
[2025-08-08 09:07] LABS: Glucose - Point of Care 101 mg/dl (70-99)
== END 2025-08-10 23:59 | disposition home or self-care (01) ==
LOC: CRHB 08:47
PROVIDERS: ATTENDING PHYSICIAN Student in an Organized Health Care Education/Training Program
DX: I25.2 Old myocardial infarction (principal); I25.10 Atherosclerotic heart disease of native coronary artery without angina pectoris (principal); Z95.5 Presence of coronary angioplasty implant and graft
CPT/HCPCS: 82962; G0422; G0423